=== PATIENT | male | born 1955 | race Caucasian/White ===

== ENCOUNTER 2025-07-28 11:35 | Emergency (ER) | payer BC ==
[~2025-07-28] VITALS: Ht 172.7 cm; Wt 109.0 kg
[2025-07-28 11:45] VITALS: O2SAT 96
[2025-07-28 11:49] VITALS: BP 137/74; PULSE 90; RESP 18; TEMP 36.7; O2SAT 97
== END 2025-07-28 19:44 | disposition home or self-care (01) ==
LOC: ER 11:35
DX: M79.662 Pain in left lower leg (principal)
CPT/HCPCS: 93971; 99284